=== PATIENT | male | born 1995 | race Caucasian/White ===

== ENCOUNTER 2017-06-05 01:49 | Emergency (ER) | payer MEDICAID ==
[~2017-06-05] VITALS: Ht 167.6 cm; Wt 91.6 kg
[2017-06-05 01:54] VITALS: Ht 167.6 cm; Wt 91.6 kg
[2017-06-05 03:33] LABS: BASOPHIL % 0.2 % (0-2); PLATELET COUNT 236 x10^3mcL (130-400); RED CELL DISTRIBUTION WIDTH 12.9 % (11.5-14.5)
[2017-06-05 03:57] LABS: CARBON DIOXIDE 29.1 mmol/L (21-32); CHLORIDE SERUM 103 mmol/L (98-107); GFR1 > 60 mL/min; GLUCOSE SERUM 119 mg/dL (74-106); POTASSIUM SERUM 3.6 mmol/L (3.5-5.1); SODIUM SERUM 141 mmol/L (136-145)
[2017-06-05 04:02] LABS: ALBUMIN 3.9 g/dL (3.4-5.0); ALKALINE PHOSPHATASE 75 U/L (46-116); ALT/SGPT 52 U/L (16-63); AST/SGOT 27 U/L (15-37); BILIRUBIN TOTAL 0.46 mg/dL (0.20-1.00); LIPASE 159 IU/L (73-393); TOTAL PROTEIN, SERUM 6.9 g/dL (6.4-8.2)
[2017-06-05 04:31] VITALS: BP 110/68
== END 2017-06-05 04:31 | disposition home or self-care (01) ==
LOC: ED 01:49
PROVIDERS: Emergency Medicine
DX: R10.13 Epigastric pain (principal); K92.0 Hematemesis; Z88.0 Allergy status to penicillin
CPT/HCPCS: 36415

== ENCOUNTER 2017-09-25 00:46 | Emergency (ER) | payer MEDICAID ==
[~2017-09-25] VITALS: Ht 167.6 cm; Wt 90.7 kg
[2017-09-25 00:55] VITALS: Ht 167.6 cm; Wt 90.7 kg
[2017-09-25 04:26] VITALS: BP 120/72
== END 2017-09-25 04:26 | disposition home or self-care (01) ==
LOC: ED 00:46
DX: L60.0 Ingrowing nail (principal); Z88.0 Allergy status to penicillin
CPT/HCPCS: J2001